=== PATIENT | male | born 1970 | race African-American/Black ===

== ENCOUNTER 2017-01-11 18:31 | Emergency (ER) | payer OTHER ==
[~2017-01-11] VITALS: Ht 172.7 cm; Wt 108.0 kg
[2017-01-11] MEDS ORDERED: PRAZ2CAP PO (18:49)
[2017-01-11] MEDS ORDERED: METF500T PO (18:49)
[2017-01-11] MEDS ORDERED: PROZ20CA11 PO (18:49)
[2017-01-11] MEDS ORDERED: ATOR1TAB18 PO (18:49)
[2017-01-11] MEDS ORDERED: QUET5TAB PO (18:49)
[2017-01-11] MEDS ORDERED: ACAM0.05 PO (18:49)
[2017-01-11] MEDS ORDERED: VENL37CA PO (18:49)
[2017-01-11] MEDS ORDERED: HYDR10T PO (18:49)
[2017-01-11] MEDS ORDERED: KETOROLAC 30 MG/ML VIAL (J1885) IV ONE (20:15)
[2017-01-11 20:30] LABS: BASO % 0.5 % (0.0-1.0); EOS # 0.1 K/mm3 (0.0-0.50); EOS % 1.6 % (0.0-3.0); LARGE UNSTAINED CELL # 0.1 K/mm3 (0.0-0.4); LARGE UNSTAINED CELL % 1.7 % (0.0-4.0); LYMPH % 30.5 % (24.0-44.0); MEAN CORPUSCULAR HEMOGLOBIN 28.5 pg (27.0-33.0); MEAN CORPUSCULAR VOLUME 86.4 fl (80.0-96.0); MONO # 0.3 K/mm3 (0.0-0.8); MONO % 5.3 % (0.0-5.0); NEUTROPHILS # 3.8 K/mm3 (1.8-7.7); NEUTROPHILS % 60.5 % (36.0-66.0); PLATELET COUNT, AUTOMATED 176 k/mm3 (150-450); WHITE BLOOD COUNT 6.3 K/mm3 (4.0-10.0)
[2017-01-11 20:32] LABS: INR 0.95
[2017-01-11 20:42] LABS: ANION GAP 5 MEQ/L (8-16); BLOOD UREA NITROGEN 15 MG/DL (7-18); CALCIUM LEVEL 9.3 MG/DL (8.5-10.1); CARBON DIOXIDE LEVEL 31 MEQ/L (21-32); CHLORIDE LEVEL 105 MEQ/L (98-107); GLOMERULAR FILTRATION RATE > 60.0 (>60); GLUCOSE, FASTING 94 MG/DL (70-105); POTASSIUM SERUM 3.9 MEQ/L (3.5-5.1); SODIUM LEVEL 141 MEQ/L (136-145)
[2017-01-11] MEDS ORDERED: ISOVUE-370 76% 100ML VIAL (Q9967) As Ordered ONE (22:02)
[2017-01-11] MEDS ORDERED: KETO10TAB PO (23:34)
[2017-01-11 23:43] VITALS: BP 137/88
--- NOTE | 2017-01-12 08:33 | REPUSA ---
CT angiogram of the chest Clinical statement: Chest pain and shortness of breath. Technique: Multiple axial CT images were obtained from the thoracic inlet through the upper abdomen a fter a bolus administration of nonionic intravenous contrast. Coronal and sagittal reconstructions we re also obtained. No comparison is available. Findings: The pulmonary arteries are well-opacified with contrast, with no intraluminal filling defec ts to suggest embolism. The thoracic aorta is unremarkable. Thyroid gland is within normal limits. Th ere is no thoracic lymphadenopathy. There are no pericardial or pleural effusions. The lungs are david r. Limited imaging of the upper abdomen is unremarkable. There are no suspicious osseous lesions. Impression: Unremarkable CT examination of the chest. No evidence of pulmonary embolism.
--- NOTE | 2017-01-12 09:23 | REP ---
AP PORTABLE CHEST: 01/11/2017. Clinical history: Chest pain. Findings: No prior studies. Lungs hypoinflated. Heart size mildly enlarged allowing for the magnified effect of portable technique and hypoinflation. There is some venous hypertension. There is no dense consolidation, definite effusion or infiltrate. The aorta is mildly tortuous. Airway intact. Bones intact. Impression: 1. Cardiomegaly and venous hypertension. Lungs are hypoinflated. No gross effusion, dense consolidation or other acute finding. Signed by José Manuel Fagan MD 01/12/2017 03:00 P
--- NOTE | 2017-01-14 08:39 | ECGEPIP ---
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 Order Number: [id number] Reading MD: Jackie Capps Measurements Intervals Carpenter Rate: 63 P: 62 MT: 194 QRS: -10 QRSD: 121 T: 33 QT: 406 QTc: 417 Interpretive Statements SINUS RHYTHM WITH SINUS ARRHYTHMIA MODERATE INTRAVENTRICULAR CONDUCTION DELAY LOW QRS VOLTAGE LIMB LEADS NO PRIOR Electronically Signed On 01-14-2017 8:38:37 EDT by Jackie Capps
== END 2017-01-11 23:47 | disposition home or self-care (01) ==
LOC: M ED 21:47
DX: R07.89 Other chest pain (principal); E11.9 Type 2 diabetes mellitus without complications; F43.10 Post-traumatic stress disorder, unspecified; I51.7 Cardiomegaly; I87.9 Disorder of vein, unspecified; Z79.899 Other long term (current) drug therapy; Z79.84 Long term (current) use of oral hypoglycemic drugs
CPT/HCPCS: 36600; 71010; 71275; 80048; 82550; 82553; 85025; 85610; 85730; 93005; 96374; 99284; J1885; Q9967

== ENCOUNTER → 2023-08-06 | Outpatient (CLI) | payer OTHER ==
[~2023-08-06] MED LIST: ACAM0.05 PO; ATOR80TA59 PO; GASTROGRAFIN SOLUTION 30ML As Ordered ONE; HYDR-643 PO; ISOVUE-370 76% 100ML VIAL As Ordered ONE; KETO10TAB PO; METF500T13 PO; PRAZ2CAP PO; PROZ20CA11 PO; QUET50TA4 PO; VENL37.52 PO
== END ==
LOC: M RAD 13:53
PROVIDERS: ATTEND Student in an Organized Health Care Education/Training Program
DX: K42.9 Umbilical hernia without obstruction or gangrene (principal); J98.11 Atelectasis; K76.0 Fatty (change of) liver, not elsewhere classified
CPT/HCPCS: 74160; Q9963; Q9967